=== PATIENT | female | born 1960 | race African-American/Black ===

== ENCOUNTER 2018-01-27 14:49 | Emergency (ER) | payer MEDICAID ==
[~2018-01-27] VITALS: Ht 160 cm; Wt 74.0 kg
[2018-01-27 15:52] VITALS: BP 163/90
== END 2018-01-27 18:38 | disposition left against medical advice (07) ==
LOC: ER 16:28
DX: M79.641 Pain in right hand (principal); Z53.21 Procedure and treatment not carried out due to patient leaving prior to being seen by health care provider

== ENCOUNTER 2018-01-27 20:45 | Emergency (ER) | payer MEDICAID ==
[~2018-01-27] VITALS: Ht 160 cm; Wt 74.5 kg
[2018-01-28] MEDS ORDERED: ACETAMINOPHEN 325MG TABLET PO ONE (01:45)
[2018-01-28 05:54] VITALS: BP 137/73
== END 2018-01-28 05:56 | disposition home or self-care (01) ==
LOC: ER 23:47
DX: S62.001A Unspecified fracture of navicular [scaphoid] bone of right wrist, initial encounter for closed fracture (principal); S42.401A Unspecified fracture of lower end of right humerus, initial encounter for closed fracture; E05.90 Thyrotoxicosis, unspecified without thyrotoxic crisis or storm; F17.200 Nicotine dependence, unspecified, uncomplicated; W18.39XA Other fall on same level, initial encounter; Y93.89 Activity, other specified; Y92.89 Other specified places as the place of occurrence of the external cause; Y99.8 Other external cause status
CPT/HCPCS: 29105; 73080; 73110; 73130; 81025; 99284; A4565